=== PATIENT | female | born 2000 | race Two or more races ===

== ENCOUNTER 2024-08-06 17:10 | Emergency (ER) | payer OTHER ==
[~2024-08-06] VITALS: Ht 160 cm; Wt 48.6 kg
--- NOTE | 2024-08-06 17:36 | ED.PDOC ---
Musculoskeletal HPI Comments HPI: Poor Historian. HPI: 23 year old female presents to the ED with chief complaint of ankle injury. Patient reports that she had accidentally rolled her left ankle inversion causing pain, swelling, and bruising about 30 minutes prior to ED arrival. Patient relays that she is able to wiggle her toes and move her foot around slightly, but she is not able to bear much weight on the foot without pain. Patient states she had a previous fracture to her left leg above her ankle, but the site of injury is not the same. Patient notes she took Advil for pain relief prior to coming to the ED. Patient denies any numbness, weakness, or fall. Initial Vital Signs: Temp : 99.7 F BP: 123/76 HR: 104 RR: 16 SpO2: 99% Past Medical History: Denies Past Surgical History: Denies Social History: Denies smoking, ETOH, or drug use. Medications: Advil Allergies: NKDA REVIEW OF SYSTEMS: CONSTITUTIONAL: Denies acute: fever, diaphoresis, chills, generalized weakness. HEAD: Denies acute: headache, photophobia Eyes: Denies acute: Double vision, vision loss, eye pain, eye discharge. EARS: Denies acute: tinnitus, hearing loss, ear discharge, ear pain, THROAT: Denies acute: sore throat, swelling, difficulty swallowing , pain with swallowing, change in voice. NECK: Denies acute: neck pain, neck swelling, stiff neck. HEART: Denies acute : chest pain, palpitations, LUNGS: Denies acute: SOB, wheezing, cough, hemoptysis ABDOMEN: Denies acute: abdominal pain, Nausea, Vomiting, diarrhea, melena , hematemesis, hematochezia SKIN: Denies acute: rash, redness, lesions, itchiness. EXTREMITIES: Denies acute: calf pain, numbness, tingling, weakness, Denies acute: Low back pain. Neuro: Denies acute: focal neurological deficit, motor or sensory focal neurological deficit, tremors, seizure like activity, confusion, dizziness, change in mental status, loss of bowel or bladder function, cauda equina like symptoms. : Denies acute: dysuria, hematuria, flank pain, increase in urinary frequency. PSYCH: Denies acute: hallucination, suicidal ideation, homicidal ideation. FEMALE: Denies acute: abnormal vaginal bleeding, foul odor, unusual discharge. PHYSICAL EXAM: General: no acute distress, awake and alert. Head: normocephalic, atraumatic. Neck: supple, trachea is midline, no swelling. Throat: Normal phonation. Eyes:, no erythema, no purulent discharge, no proptosis, no icterus. Heart: regular rate, regular rhythm, no significant murmur appreciated. Lungs: no apparent respiratory distress, Able to speak in full sentences. No wheezing, no rhonchi, no crackles. No stridors Clear to auscultation bilaterally. Abdomen: non tender to palpation, non distended, soft, no guarding, no rebound, + bowel sounds. Neuro: Awake, Alert, oriented to name, self, situation, follows commands GCS=15. Speech is normal. Skin: no petechia, no purpura, no cyanosis, non-pale, not jaundice. Lower extremities: --no - Pitting edema no deformity, no calf TTP. Evaluation of the left ankle. There is noted sprain and swelling over the left lateral malleoli with minimal bruising. The area is tender to palpation. Decreased range of motion of the ankle secondary to pain. Patient is neurovascularly intact in the affected extremity. Pedal pulses palpable. Motor and sensory are present. Denies any numbness or tingling sensation. Makes eye contact. moves all four extremities. Face: no apparent facial droop. Time Seen by MD: 17:32 Reviewed Notes: Nurses Notes, Medications, Allergies Allergies: Coded Allergies: Penicillins (Verified Allergy, Unknown, 08/06/24) Information Source: Patient Mode of Arrival: Wheelchair Location: Left Extremity Location: Ankle Timing: Minutes Was a procedure done? Was a procedure done?: No Differential Diagnosis EXT Differential Diagnosis: Fracture, Sprain, Strain X-Ray, Labs, Meds, VS Vital Signs Date Time Temp Pulse Resp B/P (MAP) Pulse Ox O2 Delivery O2 Flow Rate FiO2 08/06/24 17:49 99.7 104 16 123/76 (55) 99 [facility] [id number] [facility] [address] Ph: [phone] DIAGNOSTIC IMAGING Diagnostic Imaging Report : [id number] Signed PATIENT: JAE MARIA ACCT: [id number] UNIT: [id number] : 2000 LOC: ER ROOM / BED: / AGE / SEX: 23 / F ADM STATUS: REG ER SERVICE [id number] ORDERING PHYSICIAN: JIN RINCON DO PROCEDURE(s): LANKL - L ANKLE 3 VIEW REASON: injury ORDER NUMBER(s): [id number], ACCESSION NUMBER(s): [id number] CLINICAL INDICATION: injury TECHNIQUE: 3 views of the left ankle. XY L ANKLE 3 VIEW Comparison: None FINDINGS/IMPRESSION: Nondisplaced acute traumatic fracture of the lateral malleolus. Extensive soft tissue swelling around the ankle ATED BY: LORETTA BRODERICK MD DICTATED DATE/TIME: 08/06/241916 SIGNED BY: LORETTA BRODERICK MD SIGNED DATE/TIME: 08/06/241916 CC: Time of 1ST Reevaluation: 18:32 Reevaluation 1ST: Unchanged Patient Education/Counseling: Diagnosis, Treatment Family Education/Counseling: No Family Present Departure 1 Departure Time of Disposition: 19:15 Impression: Primary Impression: Left ankle sprain Additional Impression: Ankle fracture Disposition: 01 HOME / SELF CARE / HOMELESS Condition: Stable Additional Instructions: Additional discharge instructions: You MUST follow-up with your primary care/family doctor in 1 to 2 days. If you are unable to see your primary care/family doctor, please return to our emergency room for re-assessment and re-evaluation in 1 to 2 days. Return to the emergency room here in our facility or to the nearest ER [facility] if your symptoms change or worsen. CONSULTATIONS: you MUST Follow-up for consultation as soon as possible with: -orthopedic surgery in 1-2 days. Please call for appointment. You MUST call the consultants office yourself to make an appointment. You may need to arrange that through your insurance and/or your primary/family doctor. If you are unable to see the customs consultant in 1 to 2 days, you must return to our emergency room (or any other ER of your choice) for re-assessment and re- evaluation. Adequate fluid hydration. Leg elevation. Use [id number] Tylenol ibuprofen with food as instructed for pain control. Nonweightbearing until evaluated by Orthopedic surgery. Below is a copy of your radiological report for follow up: [place] [id number] Ph: [phone] DIAGNOSTIC IMAGING Diagnostic Imaging Report : [id number] Signed PATIENT: JAE MARIA ACCT: [id number] UNIT: [id number] : 2000 LOC: ER ROOM / BED: / AGE / SEX: 23 / F ADM STATUS: REG ER SERVICE [id number] ORDERING PHYSICIAN: JIN RINCON DO PROCEDURE(s): LANKL - L ANKLE 3 VIEW REASON: injury ORDER NUMBER(s): [id number], ACCESSION NUMBER(s): [id number] CLINICAL INDICATION: injury TECHNIQUE: 3 views of the left ankle. XY L ANKLE 3 VIEW Comparison: None FINDINGS/IMPRESSION: Nondisplaced acute traumatic fracture of the lateral malleolus. Extensive soft tissue swelling around the ankle ATED BY: LORETTA BRODERICK MD DICTATED DATE/TIME: 08/06/241916 SIGNED BY: LORETTA BRODERICK MD SIGNED DATE/TIME: 08/06/241916 CC: Discharged With: Self Critical Care Note Critical Care Time?: No I personally scribed for JIN RINCON DO ([email or web address]) on 08/06/24 at 17:36. Electronically submitted by Manish Liao ([email or web address]). I personally scribed for JIN RINCON DO ([email or web address]) on 08/06/24 at 19:23. Electronically submitted by Nimco Bailey ([email or web address]). I personally scribed for JIN RINCON DO ([email or web address]) on 08/06/24 at 19:23. Electronically submitted by Nimco Bailey ([email or web address]). JIN RINCON DO Aug 06, 2024 17:36
--- NOTE | 2024-08-06 19:19 | DVH ---
CLINICAL INDICATION: injury TECHNIQUE: 3 views of the left ankle. XY L ANKLE 3 VIEW Comparison: None FINDINGS/IMPRESSION: Nondisplaced acute traumatic fracture of the lateral malleolus. Extensive soft tissue swelling around the ankle
[2024-08-06] MEDS: HYDROcodone-ACET 5/325MG TAB PO ONE (20:15)
[2024-08-06 20:41] VITALS: BP 112/73; PULSE 90; RESP 17; TEMP 98; O2SAT 98
== END 2024-08-06 20:55 | disposition home or self-care (01) ==
LOC: ER 17:10
DX: S82.65XA Nondisplaced fracture of lateral malleolus of left fibula, initial encounter for closed fracture (principal); Z88.0 Allergy status to penicillin; X58.XXXA Exposure to other specified factors, initial encounter; Y93.89 Activity, other specified; Y92.89 Other specified places as the place of occurrence of the external cause; Y99.8 Other external cause status
CPT/HCPCS: 29515; 73610